=== PATIENT | female | born 1980 | race Caucasian/White ===

== ENCOUNTER 2024-03-13 17:53 | Emergency (ER) | payer OTHER, SELFPAY ==
[2024-03-13 18:01] VITALS: BP 140/68
[2024-03-13 19:06] VITALS: BMI 23.2
[2024-03-13 19:10] VITALS: BP 109/82
[2024-03-13] MEDS: TYLENOL 1000 MG PO (19:28)
[2024-03-13] MEDS: TORADOL 30 MG IM (19:28)
[2024-03-13] MEDS: ROXICODONE 5 MG PO (20:09)
--- NOTE | 2024-03-13 20:36 | ED.GENMED ---
History of Present Illness
General
Chief Complaint: Musculo-Skeletal Complaint
Source: patient
Exam Limitations: none
Time Seen by Provider: 03/13/24 19:10
Nursing documentation reviewed up to this point in time: agreed with
History of Present Illness
History of Present Illness:
43-year-old female presents to the emergency room for evaluation of a left ankle injury. Patient was walking down to short steps outside of her home carrying cardboard box. Tripped and suffered an inversion injury of the left ankle. She did fall
down, no secondary trauma or injury. She said she felt a snap in her left ankle. Has had pain and swelling in the left ankle since and has been unable to bear weight. She denies any left knee pain. She denies any other complaints including
headache, neck pain, back pain. Not on blood thinners.
Past History
Past History
ED Past Medical History: Other (kidney stones, ovarian cysts)
ED Past Surgical History:
Social History
Tobacco: Non-smoker
Review of Systems
Review of Systems
All Other Systems: ROS reviewed and negative except as documented in HPI and ROS
Musculoskeletal: Reports joint pain (Pain and swelling left ankle); Denies neck pain or back pain
Neurological: Denies headache
Phy Exam
Physical Exam
Physical Exam:
General: Well appearing and non-toxic
HEENT: protecting airway
Neck: appears supple
CV: No evidence of cyanosis
Resp: No accessory muscle use
Abd: Non-distended
Extremities: Patient has swelling over the left lateral malleolus and significant tenderness to the touch in this area; no significant tenderness of the medial malleolus, midfoot, fifth metatarsal, calcaneus on the left; she has no tenderness in the
joint line of the left knee or in the proximal fibula; she has a good strong left DP pulse; right lower extremity appears atraumatic
Neuro: Alert
Psych: Normal affect
Skin: Intact
Scores
Heart Failure Risk
Heart Failure Risk Score: Not Applicable
Heart Score for Chest Pain Patients
STEMI patient?: Not applicable
Withdrawal Assessment of Alcohol
Withdrawal Assessment Completed?: Not applicable
Course
Orders/Labs/Results
Orders:
Orders
03/13/24 18:03
Ankle, left 3 view CR [CR Ankle - Left Min 3 Views ] Urgent
Comment:
Reason For Exam: pain, injury
03/13/24 19:12
Crutches-Treatment ONCE
Ortho Boot Left- Treatment ONCE
Short or tall?: Tall
CR Knee - Left 4 Or More View* Urgent
Comment:
Reason For Exam: left ankle fracture
03/13/24 19:13
Ibuprofen [Motrin] 400 mg PO NOW STA
03/13/24 19:20
Acetaminophen [Tylenol] 1,000 mg PO NOW STA
Ketorolac [Toradol] 30 mg IM NOW STA
03/13/24 19:58
Oxycodone [Roxicodone] 5 mg PO NOW STA
Vital Signs
Initial and Last Documented VS:
Initial Vital Signs
Temp Pulse Resp BP Pulse Ox
36.7 C 99 18 140/68 98
03/13/24 18:01 03/13/24 18:01 03/13/24 18:01 03/13/24 18:01 03/13/24 18:01
Last Documented Vital Signs
Temp Pulse Resp BP Pulse Ox
36.9 C 99 18 109/82 97
03/13/24 19:11 03/13/24 18:01 03/13/24 18:01 03/13/24 19:10 03/13/24 19:11
MDM/Problems Addressed
Differential Diagnosis Includes:
Ankle fracture, ankle sprain
MDM/Problems Addressed:
43-year-old female presents for evaluation after an inversion injury to left ankle. No other injuries. Exam as above. She had x-ray in triage which shows Taylor B fracture of the left ankle. Sent for an x-ray of the left knee as well which showed
no fracture in the proximal fibula. Placed in Ortho boot, provided crutches, pain control. Advised regarding RICE and general fracture management. Follow-up with orthopedics (foot and ankle). All questions answered.
*Radiology
Radiology exam reviewed: preliminary read by ED provider and radiology read reviewed
*Pulse Oximetry
Patient hypoxic: no
*Critical Care Note
Total Time (30-74mins, 75-104mins- exclusive of procedures): Not Applicable
Data Reviewed
Source: patient and family (Sister)
ED Attending Note
-
Portions of this chart may have been created with voice recognition software.� Occasional wrong word or��sound alike� substitutions may have occurred due to the inherent limitations of voice recognition software.
Discharge Plan
Departure
Patient Disposition: Home (Routine Discharge)
Date of Disposition: 03/13/24
Time of Disposition: 19:51
Patient with high blood pressure during this ER visit?: No
Discharge Problem:
Ankle fracture, left
Instructions: Ankle Fracture (DC)
Prescriptions:
New
oxycodone 5 mg tablet
5 mg PO Q8H PRN (Reason: Pain) Qty: 7 0RF
No Action
oxycodone-acetaminophen 5 MG/325 MG tablet
1 tab PO Q4HPRN PRN (Reason: pain) Qty: 10 0RF
tamsulosin 0.4 MG capsule
0.4 mg PO DAILY Qty: 14 0RF
ondansetron 4 MG tablet,disintegrating
4 mg PO TIDPRN PRN (Reason: nausea/vomiting) Qty: 8 0RF
ondansetron 4 mg Tablet,Disintegrating
4 mg PO TIDPRN PRN (Reason: nausea/vomiting) Qty: 12 0RF
ondansetron 4 mg tablet,disintegrating
4 mg PO Q8H PRN (Reason: nausea and vomiting) Qty: 7 0RF
Referrals:
Norman Sagastume MD [Family Provider] -
Yusuf Guido DPM [Active] - Call in 1-3 days for appt
Activity Restrictions/Additional Instructions:
You are seen the emergency room for ankle injury�you were found to have a broken ankle. You should wear the boot at all times and use crutches until cleared by the orthopedist. You should call the orthopedist first thing tomorrow morning to
schedule an appointment to follow-up and have further treatment for your injury. You should take Tylenol 500 mg every 6 hours and ibuprofen 400 mg every 6 hours as needed for pain. You can take oxycodone 5 mg only as needed for breakthrough pain
despite treatment with Tylenol and ibuprofen. You should make sure that you are elevating your foot while seated or lying, applying ice 4-5 times daily for no longer than 15 minutes at a time.
Thank you for visiting the Emergency Department at [facility].
1. Please schedule a follow up appointment as directed. Call first thing tomorrow morning to make an appointment.
2. If indicated, please take your medications as instructed and indicated on discharge paperwork.
3. If any of your symptoms do not improve, or persist, or become more severe within 6-12 hours, please return to the emergency department for further care.
4. Please return to the emergency department if you develop a headache, neck pain/stiffness, fever greater than 100.4F, chest pain, shortness of breath, persistent nausea, vomiting, slurred speech, difficulty walking, numbness/tingling, weakness,
signs of infection or any other symptoms that are worrisome to you.
Please call [phone] if you have any questions.
Interventions
Interventions:
*Risk Screen - Suicide Last Done: 03/13/24 19:06
*General Assessment Last Done: 03/13/24 19:06
*Neglect/Abuse Screening Last Done: 03/13/24 19:06
ED- Fall Risk Assessment Last Done: 03/13/24 20:15
*ED COVID-19 Vaccine History Last Done: 03/13/24 19:06
*Nursing Disposition Last Done: 03/13/24 20:15
ED-Musculoskeletal Assessment Last Done: 03/13/24 19:06
Discharge Date and Time
Discharge Date/Time: 03/13/24 20:15
Print Language: LEBANESE
== END 2024-03-13 20:15 | disposition home or self-care (01) ==
LOC: EMR 17:53
PROVIDERS: EMERGENCY PHYSICIAN Emergency Medicine; FAMILY PHYSICIAN Family Medicine
DX: S82.892A Other fracture of left lower leg, initial encounter for closed fracture (principal); W19.XXXA Unspecified fall, initial encounter; Y93.01 Activity, walking, marching and hiking; Z87.442 Personal history of urinary calculi; Z86.16 Personal history of COVID-19
CPT/HCPCS: 99283; 29515; 73564; 73610